=== PATIENT | female | born 1935 ===

== ENCOUNTER 2017-04-08 17:00 | Inpatient (IN) | payer MEDICARE ==
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
[2017-04-08 18:27] LABS: BASO % 0.2 % (0.0-2.0); EOS # 0.2 K/uL (0.0-0.7); EOS % 1.4 % (0.0-4.0); HEMATOCRIT 39.7 % (34.0-47.0); LYMPH # 0.6 K/uL (1.0-4.3); LYMPH % 5.6 % (20.0-40.0); MEAN CELL VOLUME 87.7 fl (81.0-99.0); MEAN CORPUSCULAR HEMOGLOBIN 28.1 pg (27.0-31.0); MEAN CORPUSCULAR HGB CONC 32.1 g/dL (33.0-37.0); MEAN PLATELET VOLUME 7.5 fl (7.2-11.7); MONO # 0.4 K/uL (0.0-0.8); MONO % 3.5 % (0.0-10.0); NEUT # 10.1 K/uL (1.8-7.0); NEUT % 89.3 % (50.0-75.0); PLATELET COUNT 234 K/uL (130-400); RED CELL DISTRIBUTION WIDTH 14.1 % (11.5-14.5); WHITE BLOOD COUNT 11.3 K/uL (4.8-10.8)
[2017-04-08 18:30] LABS: PARTIAL THROMBOPLASTIN TIME 23.9 SECONDS (23.3-32.5)
[2017-04-08 18:33] LABS: ALB/GLOB RATIO 1.2 (1.0-2.1); ALKALINE PHOSPHATASE 84 U/L (38-126); ALT/SGPT 38 U/L (9-52); AST/SGOT 31 U/L (14-36); BILIRUBIN,TOTAL 0.3 mg/dl (0.2-1.3); BLOOD UREA NITROGEN 30 mg/dl (7-17); CALCIUM 9.3 mg/dL (8.4-10.2); CARBON DIOXIDE 26 mmol/L (22-30); CHLORIDE 101 mmol/L (98-107); GFR AFRICAN-AMERICAN > 60; GLUCOSE,RANDOM 145 mg/dL (65-105); POTASSIUM 3.4 MMOL/L (3.6-5.0); SODIUM 139 mmol/l (132-148); TOTAL PROTEIN 7.9 G/DL (6.3-8.2)
[2017-04-08] MEDS ORDERED: Propofol 10 mg/ml Inj (20 ML) ONE (19:23)
[2017-04-08] MEDS ORDERED: Propofol 10 mg/ml Inj (20 ML) IV ONE (19:28)
[2017-04-08 20:02] LABS: EOSINOPHIL 3 % (0-7); NEUTROPHIL 87 % (42-75); TOTAL CELLS COUNTED 100
[2017-04-08 20:04] LABS: LARGE PLATELETS PRESENT
--- NOTE | 2017-04-08 22:08 | CT ---
EXAM: CT Left Upper Extremity Without Intravenous Contrast, Shoulder CLINICAL HISTORY: 82 years old, female; Injury or trauma; Fall; Initial encounter; Dislocation; Severity not specified; Shoulder; Left; Additional info: Left shoulder dislocation poss FX TECHNIQUE: Axial computed tomography images of the left shoulder without intravenous contrast. This CT exam was performed using one or more of the following dose reduction techniques: automated exposure control, adjustment of the mA and/or kV according to patient size, and/or use of iterative reconstruction technique. Coronal and sagittal reformatted images were created and reviewed. EXAM DATE/TIME: 04/08/2017 8:11 PM COMPARISON: There are no prior studies for comparison. FINDINGS: Bones/joints: There are degenerative changes in the visualized portion of the spine greatest at C5-6 and C6-7.. Visualized ribs are intact. Left clavicle is intact. There are degenerative changes at the acromioclavicular and sternoclavicular joints. Degenerative bony ossicle superior to the acromioclavicular joint. Left humeral head is anatomically positioned within the glenoid. There is a Bankart lesion in the humeral head. There are small well corticated calcifications adjacent to the medial proximal left humeral diaphysis There are fractures of the anterior inferior glenoid rim. Soft tissues: Streak artifact limits evaluation soft tissues. There are atelectatic changes and scarring in the visualized left lung IMPRESSION: Fracture of the inferior glenoid rim; Bankart lesion in the left humeral head; calcific tendinitis
--- NOTE | 2017-04-08 22:12 | CT ---
EXAM: CT Left Lower Extremity Without Intravenous Contrast, Hip CLINICAL HISTORY: 82 years old, female; Injury or trauma; Fall; Initial encounter; Fracture, traumatic; Other: Possible fracture; Hip; Left; Additional info: Hip pain S/P fall TECHNIQUE: Axial computed tomography images of the left hip without intravenous contrast. This CT exam was performed using one or more of the following dose reduction techniques: automated exposure control, adjustment of the mA and/or kV according to patient size, and/or use of iterative reconstruction technique. Coronal and sagittal reformatted images were created and reviewed. EXAM DATE/TIME: 04/08/2017 7:15 PM COMPARISON: CR - HIP W/WO PELVIS 2-3 VIEWS LT 04/08/2017 6:09:58 PM FINDINGS: Bones/joints: Bony structures are osteopenic. There degenerative changes in the lower lumbar spine. There is disc space narrowing and osteophyte formation. There is minimal retrolisthesis L4 on L5. There is mild posterior disc bulging L5/S1. There is narrowing of the sacroiliac joints with vacuum phenomenon. There is a linear lucency in the left acetabular roof. There are no ischial or pubic fractures. There is no left femoral fracture. There is narrowing of the left hip joint. Soft tissues: There is bruising in the soft tissues at the left hip at the level of the greater trochanter Vasculature: There are vascular calcifications. Bowel: There is diverticulosis Bladder: Bladder is distended. Reproductive: Uterus is atrophic with coarse calcifications. IMPRESSION: Bruising at the left hip, possible linear nondisplaced fracture in the left acetabular roof
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
[2017-04-08] MEDS ORDERED: Potassium Chloride 20 mEq ER Tab PO ONE (23:04)
[2017-04-09] MEDS: Sodium Chloride 0.9% 1,000 ML IV SCH ×3 (06:00→16:22)
[2017-04-09 07:34] LABS: BASO % 0.4 % (0.0-2.0); EOS # 0.2 K/uL (0.0-0.7); EOS % 3.5 % (0.0-4.0); HEMATOCRIT 35.9 % (34.0-47.0); LYMPH % 16.4 % (20.0-40.0); MEAN CELL VOLUME 86.2 fl (81.0-99.0); MEAN CORPUSCULAR HEMOGLOBIN 28.6 pg (27.0-31.0); MEAN CORPUSCULAR HGB CONC 33.2 g/dL (33.0-37.0); MEAN PLATELET VOLUME 7.8 fl (7.2-11.7); MONO # 0.5 K/uL (0.0-0.8); NEUT # 4.3 K/uL (1.8-7.0); NEUT % 71.7 % (50.0-75.0); NRBC % 0.2 % (0.0-0.0); RED CELL DISTRIBUTION WIDTH 13.9 % (11.5-14.5)
[2017-04-09 07:45] LABS: BLOOD UREA NITROGEN 16 mg/dl (7-17); CALCIUM 8.8 mg/dL (8.4-10.2); CARBON DIOXIDE 25 mmol/L (22-30); CHLORIDE 106 mmol/L (98-107); GFR AFRICAN-AMERICAN > 60; GLUCOSE,RANDOM 102 mg/dL (65-105); POTASSIUM 3.7 MMOL/L (3.6-5.0); SODIUM 139 mmol/l (132-148)
--- NOTE | 2017-04-09 08:46 | RAD ---
PROCEDURE: CHEST RADIOGRAPH, 1 VIEW HISTORY: fall COMPARISON: None available. FINDINGS: LUNGS: Clear. PLEURA: No pneumothorax or pleural fluid seen. CARDIOVASCULAR: No radiographic findings to suggest acute or significant cardiovascular disease. OSSEOUS STRUCTURES: Anterior inferior dislocation of the left humeral head relative to the glenoid. No apparent fracture. VISUALIZED UPPER ABDOMEN: Normal. OTHER FINDINGS: None. IMPRESSION: No active pulmonary disease.
[2017-04-09] MEDS ORDERED: Patient's Own Med (Simvastatin [Simvastatin] 10 MG) PO SCH (09:00)
[2017-04-09] MEDS: Enoxaparin 40 mg Syringe SC SCH (09:02)
[2017-04-09] MEDS: Pravastatin Sodium 20 MG TAB PO SCH (09:03)
--- NOTE | 2017-04-09 13:18 | RAD ---
PROCEDURE: Left Hip X-ray Radiographs. HISTORY: hip pain s/p fall r/o fx COMPARISON: NoneMay 2016. CT left hip araya. FINDINGS: BONES: The fracture identified on the concurrent CT is not readily apparent on the plain film radiographs. JOINTS: Mild degenerative Changes identified. SOFT TISSUES: Normal. OTHER FINDINGS: None. IMPRESSION: Nonvisualization of linear fracture through the acetabulum identified on 04/08/2017 CT
--- NOTE | 2017-04-09 13:40 | RAD ---
PROCEDURE: Left shoulder one view HISTORY: post reduction COMPARISON: Pre reduction radiographs 04/08/2017 at 18:18. TECHNIQUE: AP view only FINDINGS: Satisfactory postreduction radiographs Fracture through the inferior aspect of the glenoid. The finding is marked on the study for review. IMPRESSION: Status post reduction of anterior inferior dislocation of the left humeral head. Anatomic alignment is now mild identified. There is evidence of fracture of the inferior aspect of the glenoid.
--- NOTE | 2017-04-09 13:40 | RAD ---
PROCEDURE: Radiographs of the Left Shoulder HISTORY: shoulder pain s/p fall r/o fx COMPARISON: None available. FINDINGS: BONES: Osseous demineralization limits evaluation for acute fracture lines. No acute displaced fracture. The distal clavicle and underlying ribs appear intact. Degenerative changes. JOINTS: Anterior medial deviation of the humeral head compatible with anterior dislocation. SOFT TISSUES: Soft tissues appear unremarkable. No evidence of radiopaque foreign body. Ectatic aorta. 4 mm left upper lobe calcified granuloma. IMPRESSION: Anterior dislocation. Osseous demineralization. Degenerative changes.
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
[2017-04-10] MEDS: Enoxaparin 40 mg Syringe SC SCH (08:54)
[2017-04-10] MEDS: Pravastatin Sodium 20 MG TAB PO SCH (08:55)
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
--- NOTE | 2017-04-10 13:32 | MRI ---
MRI left hip History: Fracture. Comparison: None available. Technique: Multi-echo multiplanar sequences were performed through the left hip without the use of intravenous contrast. Findings: Left hip: Prominent signal abnormality seen within the anterior left bony acetabulum extending into the posterior superior left pubic bone demonstrating decreased T1 signal and increased STIR signal concerning for a fracture deformity. Additional signal abnormality noted within the mid inferior left pubic bone demonstrating decreased T1 signal and increased STIR signal also concerning for a fracture deformity. Reactive edema noted at the level of the pubic symphysis. Additional increased signal in a vertically-oriented linear orientation at the mid left acetabulum at the articular surface extending superiorly into the left iliac bone best demonstrated on series 8, image 16 demonstrating decreased T1 signal and increased STIR signal also concerning for a nondisplaced fracture deformity. Femoral head is located and within good position. Proximal left femur appears preserved. Partial tearing with prominent insertional tendinopathy of the left iliopsoas tendons on the greater trochanter. High-grade sprain and or partial tearing of the left hamstring tendon origins. Left rectus femoris tendon attachment appears preserved. Prominent partial tearing of the left gluteus tendons at their attachment on the greater trochanter. Small amount of fluid within the left greater trochanteric bursa. Moderate left hip joint effusion. Prominent edema and/or muscle tearing seen within the musculature adjacent to the left pubic bones inferiorly. Degenerative fraying and partial tearing of the left anterior acetabular labrum. Minimal reactive edema seen within the left hemisacrum near the SI joint, nonspecific. Incidentally noted are prominent degenerative changes in the lower lumbar spine with endplate reactive edema centered at the L4-5 disc space. Incidentally noted is moderate insertional tendinopathy and/or partial tearing of the right gluteus tendons on the greater trochanter. Impression: 1. Prominent signal abnormality seen within the anterior left bony acetabulum extending into the posterior superior left pubic bone demonstrating decreased T1 signal and increased STIR signal concerning for a fracture deformity. Additional signal abnormality noted within the mid inferior left pubic bone demonstrating decreased T1 signal and increased STIR signal also concerning for a fracture deformity. Additional increased signal in a vertically-oriented linear orientation at the mid left acetabulum at the articular surface extending superiorly into the left iliac bone best demonstrated on series 8, image 16 demonstrating decreased T1 signal and increased STIR signal also concerning for a nondisplaced fracture deformity. Reactive edema noted at the level of the pubic symphysis. 2. Partial tearing with prominent insertional tendinopathy of the left iliopsoas tendons on the greater trochanter. 3. High-grade sprain and or partial tearing of the left hamstring tendon origins. 4. Prominent partial tearing of the left gluteus tendons at their attachment on the greater trochanter. Small amount of fluid within the left greater trochanteric bursa. 5. Moderate left hip joint effusion. 6. Prominent edema and/or muscle tearing seen within the musculature adjacent to the left pubic bones inferiorly. 7. Degenerative fraying and partial tearing of the left anterior acetabular labrum. 8. Minimal reactive edema seen within the left hemisacrum near the SI joint, nonspecific. 9. Incidentally noted are prominent degenerative changes in the lower lumbar spine with endplate reactive edema centered at the L4-5 disc space. 10. Incidentally noted is moderate insertional tendinopathy and/or partial tearing of the right gluteus tendons on the greater trochanter.
[2017-04-10] MEDS: Sodium Chloride 0.9% 1,000 ML IV SCH (16:06)
[2017-04-11] MEDS: Enoxaparin 40 mg Syringe SC SCH (08:25)
[2017-04-11] MEDS: Pravastatin Sodium 20 MG TAB PO SCH (08:26)
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
[2017-04-12 08:14] VITALS: BP 155/71; PULSE 69; RESP 18; TEMP 98.8; O2SAT 95
[2017-04-12] MEDS: Enoxaparin 40 mg Syringe SC SCH (09:19)
[2017-04-12] MEDS: Pravastatin Sodium 20 MG TAB PO SCH (09:20)
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
== END 2017-04-12 14:26 | DRG 536 ==
LOC: H.ER 17:00 → H.ERHOLD 22:21 → H.MEDSURG1 23:35
PROVIDERS: ADMIT Internal Medicine; ATTEND Internal Medicine
PROC: 0QS5XZZ Reposition Left Acetabulum, External Approach (ICD-10-PCS; principal; 2017-04-08)
DX: S32.492A Other specified fracture of left acetabulum, initial encounter for closed fracture (principal); E86.0 Dehydration; S42.142A Displaced fracture of glenoid cavity of scapula, left shoulder, initial encounter for closed fracture; D72.828 Other elevated white blood cell count; I10 Essential (primary) hypertension; E78.5 Hyperlipidemia, unspecified; M75.32 Calcific tendinitis of left shoulder; E87.6 Hypokalemia; V81.4XXA Person injured while boarding or alighting from railway train or railway vehicle, initial encounter; Z87.891 Personal history of nicotine dependence; Z91.012 Allergy to eggs; Z91.011 Allergy to milk products; Z91.013 Allergy to seafood

== ENCOUNTER 2018-12-04 14:34 | Emergency (ER) | payer MEDICARE ==
[2018-12-04 14:57] VITALS: TEMP 97.7; O2SAT 100
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
--- NOTE | 2018-12-04 16:46 | CT ---
Date of service: 12/04/2018 PROCEDURE: CT MAXILLOFACIAL BONES WITHOUT CONTRAST HISTORY: Trauma COMPARISON: None available. TECHNIQUE: Contiguous axial CT images of the maxillofacial bones were obtained. Coronal and sagittal reformats were generated. Radiation dose: Total exam DLP = 687.83 mGy-cm. This CT exam was performed using one or more of the following dose reduction techniques: Automated exposure control, adjustment of the mA and/or kV according to patient size, and/or use of iterative reconstruction technique. FINDINGS: NASAL BONES: Unremarkable. ORBITS: Unremarkable. PARANASAL SINUSES/ MASTOIDS: Air-fluid level right maxillary sinus likely acute sinusitis. MAXILLA: Unremarkable. MANDIBLE/ TEMPOROMANDIBULAR JOINTS: Unremarkable. SKULL BASE: Unremarkable. TEMPORAL BONES: Middle ears and mastoid grossly unremarkable. OTHER FINDINGS: Soft tissue asymmetry retro molar trigone region left. This is adjacent to the left vijay mandible and temporalis muscle. Whether this is a discrete mass or lymph node (level IIa) cannot be determined. The area of interest measures 1 6 cm. IMPRESSION: No acute osseous abnormalities. No abnormalities with respect to the mandible or maxilla. Soft tissue mass retromolar trigone region 1.6 cm on left. Direct inspection, palpation may provide further information regarding this finding. The mass is best visualized on axial series 3/image 18.
[2018-12-04 17:20] VITALS: BP 130/82; PULSE 82; RESP 18
== END 2018-12-04 17:17 | disposition home or self-care (01) ==
LOC: H.ER 14:34
DX: S00.83XA Contusion of other part of head, initial encounter (principal); W01.0XXA Fall on same level from slipping, tripping and stumbling without subsequent striking against object, initial encounter; Y92.410 Unspecified street and highway as the place of occurrence of the external cause; K13.79 Other lesions of oral mucosa